=== PATIENT | male | born 1985 | race Two or more races ===

== ENCOUNTER 2017-10-20 13:48 | Emergency (ER) | payer SELFPAY ==
[~2017-10-20] VITALS: Ht 170.2 cm; Wt 90.7 kg
[2017-10-20 13:55] VITALS: BP 129/79
== END 2017-10-20 15:50 | disposition home or self-care (01) ==
LOC: ER 13:48
DX: S63.502A Unspecified sprain of left wrist, initial encounter (principal); W19.XXXA Unspecified fall, initial encounter; Y93.89 Activity, other specified; Y99.8 Other external cause status; Y92.89 Other specified places as the place of occurrence of the external cause
CPT/HCPCS: 73110

== ENCOUNTER 2019-05-29 13:38 | Emergency (ER) | payer SELFPAY ==
[~2019-05-29] VITALS: Ht 170.2 cm; Wt 89.8 kg
[2019-05-29 13:45] VITALS: BP 130/35
[2019-05-29] MEDS ORDERED: ACETAMINOPHEN 650 mg PER 20 mL UD GT ONE (14:00)
== END 2019-05-29 15:08 | disposition left against medical advice (07) ==
LOC: ER 13:43
DX: J02.9 Acute pharyngitis, unspecified (principal); R50.9 Fever, unspecified; Z53.21 Procedure and treatment not carried out due to patient leaving prior to being seen by health care provider